=== PATIENT | female | born 1955 | race Caucasian/White ===

== ENCOUNTER 2017-11-12 19:24 | Emergency (ER) | payer MEDICARE, OTHER ==
[2017-11-12] MEDS: HYDROCODONE/APAP (10/325) TAB PO (20:14)
[2017-11-12] MEDS: morphine 4 MG/ML VIAL IM (22:29)
== END 2017-11-12 23:05 | disposition home or self-care (01) ==
LOC: FTE 23:05
DX: M51.46 Schmorl's nodes, lumbar region (principal); R07.9 Chest pain, unspecified; Z96.653 Presence of artificial knee joint, bilateral
CPT/HCPCS: 71046; 72128; 72131; 96372; 99285-25